=== PATIENT | female | born 1960 | race Caucasian/White ===

== ENCOUNTER 2021-03-19 10:01 | Outpatient (REF) | payer OTHER, SELFPAY ==
--- NOTE | ~2021-03-19 | MM_ITS ---
EXAMINATION: MM SCREENING DIGITAL BREAST TOMOSYNTHESIS, BILATERAL CLINICAL INFORMATION: Screening. Asymptomatic. The lifetime risk of breast cancer based on the Tyrer-Cuzick Model is 5.4%. COMPARISON: Mammography: June 20, 2018 and studies dating back to April 28, 2011 TECHNIQUE: Digital breast tomosynthesis is performed in both the craniocaudal and mediolateral oblique views along with computer-aided detection (CAD). Synthesized 2D images are generated from the tomosynthesis. FINDINGS: There are scattered areas of fibroglandular density (ACR BI-RADS breast composition Category b). There are no significant masses, abnormal calcifications, or other abnormalities. MM/MM tomosynthesis screening BI IMPRESSION: There are no significant changes from prior study. ASSESSMENT: BI-RADS 1: Negative RECOMMENDATION: Routine annual mammography screening. This patient's information was entered into a reminder system with a target due date for their next mammogram.
== END 2021-03-19 10:02 | disposition home or self-care (01) ==
LOC: HO.MAMMO 10:01
PROVIDERS: PCP Internal Medicine; Visit Provider Internal Medicine
DX: Z12.31 Encounter for screening mammogram for malignant neoplasm of breast (principal)
CPT/HCPCS: 77063; 77067

== ENCOUNTER 2021-07-20 16:35 | Outpatient (REF) | payer OTHER, SELFPAY ==
--- NOTE | ~2021-07-20 | XR_ITS ---
EXAMINATION: XR KNEE, RIGHT CLINICAL INFORMATION: Sprain COMPARISON: None TECHNIQUE: Four views of the right knee. FINDINGS: No significant joint effusion. Bones are normal anatomic alignment with no acute fracture or dislocation seen. No bony destructive lesions or periosteal reaction. XR/XR knee RT 4V IMPRESSION: No acute bony abnormality.
== END 2021-07-20 16:36 | disposition home or self-care (01) ==
LOC: HO.HMGCX 16:35
PROVIDERS: PCP Internal Medicine; Visit Provider Internal Medicine
DX: S83.91XA Sprain of unspecified site of right knee, initial encounter (principal)
CPT/HCPCS: 73564

== ENCOUNTER 2022-05-12 14:43 | Outpatient (REF) | payer OTHER, SELFPAY ==
--- NOTE | ~2022-05-12 | MM_ITS ---
EXAMINATION: MM SCREENING DIGITAL BREAST TOMOSYNTHESIS, BILATERAL CLINICAL INFORMATION: Screening. Asymptomatic. The lifetime risk of breast cancer based on the Tyrer-Cuzick Model is 6%. COMPARISON: Mammography: March 19, 2021 and studies dating back to May 26, 2015 TECHNIQUE: Digital breast tomosynthesis is performed in both the craniocaudal and mediolateral oblique views along with computer-aided detection (CAD). Synthesized 2D images are generated from the tomosynthesis. FINDINGS: There are scattered areas of fibroglandular density (ACR BI-RADS breast composition Category b). There are no significant masses, abnormal calcifications, or other abnormalities. MM/MM tomosynthesis screening BI IMPRESSION: No significant changes from prior exam. ASSESSMENT: BI-RADS 1: Negative RECOMMENDATION: Routine annual mammography screening. This patient's information was entered into a reminder system with a target due date for their next mammogram.
== END 2022-05-12 14:44 | disposition home or self-care (01) ==
LOC: HO.MAMMO 14:43
PROVIDERS: PCP Internal Medicine; Visit Provider Internal Medicine
DX: Z12.31 Encounter for screening mammogram for malignant neoplasm of breast (principal)
CPT/HCPCS: 77063; 77067

== ENCOUNTER 2023-05-19 14:55 | Outpatient (REF) | payer OTHER, SELFPAY | END 2023-05-19 14:56 | disposition home or self-care (01) | LOC: HO.MAMMO 14:55 | PROVIDERS: PCP Internal Medicine; Visit Provider Internal Medicine | DX: Z12.31 Encounter for screening mammogram for malignant neoplasm of breast (principal) | CPT/HCPCS: 77063; 77067 ==

== ENCOUNTER → 2023-05-19 15:00 | Outpatient (BNV) | payer OTHER, SELFPAY | PROVIDERS: PCP Internal Medicine; Visit Provider Radiology Diagnostic Radiology | DX: Z12.31 Encounter for screening mammogram for malignant neoplasm of breast (principal) | CPT/HCPCS: 77063; 77067 ==

== ENCOUNTER 2023-09-13 10:26 | Outpatient (AMB) | payer OTHER, SELFPAY ==
[2023-09-13 10:35] VITALS: BP 150/82; PULSE 67; O2SAT 98; BMI 22.1
--- NOTE | 2023-09-13 10:35 | MHC.PC.OV ---
Vital Signs 09/13/23 10:35 Height 5 ft 3 in Weight 125 lb BMI 22.1 BP 150/82 H Blood Pressure Location Lt brachial Position Sitting Pulse 67 Pulse Source Pulse Oximeter Pulse Oximetry (%) 98 Oxygen Delivery Method Room Air Intake Visit Reasons: Re-establish care Intake Note: Pt is here today for PE.Pt has not been seen since 2019. Allergies No Known Allergies Allergy (Verified 09/13/23 10:51) Medication List - Last Reconciled 09/13/23 by Kendy Knott MD No Known Home Meds Tobacco use date assessed: 09/13/23 Dental Screening Dental Screen Date: 09/13/23 Did you have a dental visit in the last 12 months?: Yes Did you have a dental problem in the last 6 months where you did not have access to dental care?: No Was dental information given to patient?: Patient has dentist HPI Re-establish care HPI Details Patient presents for a follow-up visit. She was found to have elevated blood pressure on a few occasions. Patient denies chest pain shortness of breath headaches change in vision. [facility] Surgical History No pertinent past surgical history Family History Father No problems noted. Mother COPD (chronic obstructive pulmonary disease) Mental health disorder Son Mental health disorder Social History Housing: House Patient Tobacco Use Status: Never used Tobacco e-Cigarette/Vaping Use: Never Used service: No Current occupational status: employed Cognitive needs: No Hearing needs: No Vision needs: Yes Questionnaire AUDIT C Alcohol Use Questionnaire (AUDIT-C) 1. How often do you have a drink containing alcohol?: 2-3 times a week 2. How many drinks containing alcohol do you have on a typical day when you are drinking?: 1 or 2 3. How often do you have six or more drinks on one occasion?: Never Total Score: 3 Review of Systems Const All systems reviewed & are unremarkable except as noted in HPI and below ENT Reports no additional complaints Card Reports no additional complaints Resp Reports no additional complaints GI Reports no additional complaints Reports no additional complaints Physical exam (Primary Care) Vital Signs: Last Vital Signs Pulse 67 09/13/23 10:35 BP 150/82 H 09/13/23 10:35 Pulse Ox 98 09/13/23 10:35 Oxygen Delivery Method Room Air 09/13/23 10:35 BMI result Body Mass Index 22.1 Tobacco/Smoking Status: Tobacco use Status Tobacco use date assessed 09/13/23 09/13/23 10:59 Patient Tobacco Use Status Never used Tobacco 09/13/23 10:59 e-Cigarette/Vaping Use Never Used 09/13/23 10:59 Const General: no acute distress HENOK General nose exam: Normal external nose present Mouth: Normal oral and palatal mucosa present Eyes General: appearance normal, both eyes and all related structures Neck Neck: Yes no lymphadenopathy and Yes supple Resp Effort & Inspection: normal respiratory effort Auscultation: clear to auscultation bilaterally Cardio Rhythm: regular rhythm Heart sounds: S1 normal heart sound present and S2 normal heart sound present GI Inspection: Yes normal to inspection Palpation (GI): Soft to palpation Percussion: Yes normal to percussion Auscultation: normal bowel sounds Assessment and Plan Assessment & Plan (1) Annual physical exam: Code(s): Z00.00 - Encounter for general adult medical examination without abnormal findings Plan: Well-balanced diet regular physical activity and down on alcohol intake discussed with the patient. She has up-to-date with the mammogram. Patient will be referred to GI for colonoscopy and will have a Pap smear during her next visit. (2) HTN (hypertension): Code(s): I10 - Essential (primary) hypertension Plan: Low-sodium diet regular exercise discussed with the patient's start valsartan 40 mg daily follow-up in 1 month Orders: Orders Comprehensive [place]. Panel Fast 1 Week I10 - Essential (primary) hypertension, Z00.00 - Encounter for general adult medical examination without abnormal findings TSH reflex Free T4 1 Week I10 - Essential (primary) hypertension, Z00.00 - Encounter for general adult medical examination without abnormal findings UA w Microscopic 1 Week I10 - Essential (primary) hypertension, Z00.00 - Encounter for general adult medical examination without abnormal findings Complete Blood Count Auto Diff 1 Week I10 - Essential (primary) hypertension, Z00.00 - Encounter for general adult medical examination without abnormal findings Lipid Panel 1 Week I10 - Essential (primary) hypertension, Z00.00 - Encounter for general adult medical examination without abnormal findings Vitamin D 25-OH Total 1 Week I10 - Essential (primary) hypertension, Z00.00 - Encounter for general adult medical examination without abnormal findings Medications: New valsartan 40 mg PO DAILY 90 tabs 0RF Coding Level of Care Code Est Pt Level 3 (59467) Diagnoses Annual physical exam Z00.00 HTN (hypertension) I10
== END 2023-09-13 11:34 | disposition home or self-care (01) ==
PROVIDERS: PCP Internal Medicine; Visit Provider Internal Medicine
DX: Z00.00 Encounter for general adult medical examination without abnormal findings (principal); I10 Essential (primary) hypertension
CPT/HCPCS: 99213; 99396

== ENCOUNTER 2023-11-16 08:53 | Outpatient (REF) | payer OTHER, SELFPAY ==
[2023-11-16 10:01] LABS: MANUAL DIFF FLAG NO
[2023-11-16 10:14] LABS: Basophils Percent Auto 0.8 % (0-2); Eosinophils Absolute Auto 0.3 X10*3/uL (0.0-0.4); Eosinophils Percent Auto 8.7 % (0-4); Hematocrit 35.8 % (37.0-47.0); Hemoglobin 12.2 g/dl (12.0-16.0); Imm Gran Abs Auto 0.02 X10*3/uL (0.00-0.03); Imm Gran Pct Auto 0.6 % (0.0-0.4); Lymphocytes Absolute Auto 1.1 X10*3/uL (1.2-4.9); Lymphocytes Percent Auto 29.6 % (20-40); Mean Corpuscular HGB Conc 34.1 g/dl (31.0-35.0); Mean Corpuscular Hemoglobin 33.8 pg (27.0-33.0); Mean Corpuscular Volume 99.2 fL (80.0-98.0); Mean Platelet Volume 8.6 fL (9.4-12.3); Monocytes Absolute Auto 0.4 X10*3/uL (0.1-1.2); Monocytes Percent Auto 10.6 % (2-11); Neutrophils Absolute Auto 1.8 x10*3/uL (2.0-8.3); Neutrophils Percent Auto 49.7 % (45-73); Platelet Count 288 X10*3/uL (160-400); Red Blood Count 3.61 X10*6/uL (4.20-5.50); Red Cell Distribution Width 11.6 % (11.0-16.0); White Blood Count 3.6 X10*3/uL (4.8-10.8)
[2023-11-16 10:36] LABS: Appearance Urine Clear; Color Urine Yellow; Glucose Urine UA Negative (Negative); Leukocyte Esterase Urine Trace (Negative); Nitrite Urine Negative (Negative); PH 5.5 (5.0-9.0); Specific Gravity - Urine 1.015 (1.005-1.025); UMIC TRIGGER UA YES; Urine Blood Negative (Negative); Urine Ketones Negative (Negative); Urine Protein Negative (Neg-Trace)
[2023-11-16 10:40] LABS: Bacteria Urine None Seen (None Seen); Hyaline Casts Urine 0-2 /LPF (0-2); RBC Urine 0-2 /HPF (0-2); Squamous Epithelial Cell Urine 0-2 /HPF (0-2); WBC Urine 0-5 /HPF (0-5)
[2023-11-16 10:41] LABS: Alanine Aminotransferase 78 U/L (0-31); Albumin Level 4.5 g/dL (3.5-5.0); Alkaline Phosphatase 50 U/L (39-117); Anion Gap 12 (12-20); Aspartate Amino Transferase 66 U/L (5-31); Bilirubin Total 0.6 mg/dL (0.0-1.0); Blood Urea Nitrogen 12 mg/dL (9-16); Calcium 9.6 mg/dL (8.4-10.2); Carbon Dioxide 27 mmol/L (22-29); Chloride 106 mmol/L (96-108); Cholesterol 247 mg/dL (<200); Estimated Glomerular Filt Rate > 60; Glucose Fasting 87 mg/dL (60-99); HDL Cholesterol 116 mg/dL (>40); LDL Cholesterol Calculated 115 mg/dL (<100); Potassium 4.3 mmol/L (3.3-5.1); Sodium 141 mmol/L (135-145); TSH reflex Free T4 0.99 uIU/mL (0.32-4.0); Total Protein 7.3 g/dL (6.5-8.0); Triglycerides 80 mg/dL (<150); Vitamin D 25-OH Total 19.5 ng/mL (>30)
== END 2023-11-16 08:54 | disposition home or self-care (01) ==
LOC: HO.HMGCLDS 08:53
PROVIDERS: PCP Internal Medicine; Visit Provider Internal Medicine
DX: Z00.00 Encounter for general adult medical examination without abnormal findings (principal); I10 Essential (primary) hypertension
CPT/HCPCS: 36415; 80053; 80061; 81001; 82306; 84443; 85025

== ENCOUNTER 2023-11-17 10:43 | Outpatient (AMB) | payer OTHER, SELFPAY ==
--- NOTE | 2023-11-17 10:52 | MHC.PC.OV ---
Vital Signs 11/17/23 10:53 Height 5 ft 3 in Weight 125 lb BMI 22.1 BP 138/80 Blood Pressure Location Lt brachial Position Sitting Pulse 79 Pulse Source Pulse Oximeter Pulse Oximetry (%) 100 Oxygen Delivery Method Room Air Intake Visit Reasons: Follow up Intake Note: Pt is here today for a follow up visit on BP. Allergies No Known Allergies Allergy (Verified 11/17/23 10:56) Medication List - Last Reconciled 11/17/23 by Kendy Knott MD valsartan 40 mg PO DAILY Tobacco use date assessed: 11/17/23 Dental Screening Dental Screen Date: 09/13/23 HPI Follow up HPI Details PATIENT PRESENTS FOR THE FOLLOW-UP ON HYPERTENSION CONTROLLED ON VALSARTAN. Patient reports medication being very expensive and would like to change to a cheaper one. Patient reports intermittent lightheadedness in the morning but otherwise tolerating medication well. She continues to drink daily 2 beers a day and occasionally with an extra drink. Patient denies alcohol dependency. [facility] Surgical History No pertinent past surgical history Family History Father No problems noted. Mother COPD (chronic obstructive pulmonary disease) Mental health disorder Son Mental health disorder Social History Housing: House Patient Tobacco Use Status: Never used Tobacco e-Cigarette/Vaping Use: Never Used service: No Current occupational status: employed Cognitive needs: No Hearing needs: No Vision needs: Yes Questionnaire PHQ-9 Over the last 2 weeks, how often have you been bothered by any of the following problems? 1. Little interest or pleasure in doing things: not at all 2. Feeling down, depressed, or hopeless: not at all 3. Trouble falling or staying asleep, or sleeping too much: not at all 4. Feeling tired or having little energy: not at all 5. Poor appetite or overeating: not at all 6. Feeling bad about yourself - or that you are a failure or have let yourself or your family down: not at all 7. Trouble concentrating on things, such as reading the newspaper or watching television: not at all 8. Moving or speaking so slowly that other people could have noticed. Or the opposite - being so fidgety or restless that you have been moving around a lot more than usual: not at all 9. Thoughts that you would be better off or of hurting yourself in some way: not at all Total score: 0 Depression Screening Interpretation: Negative Depression Screening Done: Yes 97173 - PHQ-9 Billing: Yes Source: Developed by Drs. Dony Ruiz, Leonora Villagran, Curtis Nova and colleagues, with an educational landon from [employer]. Thrive Questionnaire Date Thrive assessed: 11/16/23 I am a: Patient What is your living situation today?: I have a steady place to live Within the past 12 months, did the food you bought not last and you didn't have the money to get more?: Never true Within the past 12 months, did you worry whether your food would run out before you got money to buy more?: Often true Do you have trouble paying for medicines?: No Do you have trouble getting transportation to medical appointments?: No Do you have trouble paying your heating and electricity bill?: No Do you have trouble taking care of your child, family member or friend?: No Do you have trouble with day-to-day activities such as bathing, preparing meals, shopping, managing finances, etc.?: No Are you currently unemployed and looking for a job?: No Are you interested in more education?: No Please select the resources that you would like help with: None Currently or been in a relationship where the following occur: No concerns reported THRIVE Score: 1 AUDIT C Alcohol Use Questionnaire (AUDIT-C) 1. How often do you have a drink containing alcohol?: 4 or more times a week 2. How many drinks containing alcohol do you have on a typical day when you are drinking?: 3 or 4 3. How often do you have six or more drinks on one occasion?: Less than monthly Total Score: 6 RADHA-7 AMB Questionnaire RADHA-7 Feeling nervous, anxious, or on edge: 1 = Several days Not being able to stop or control worryin = Several days Worrying too much about different things: 1 = Several days Trouble relaxin = Not at all Being so restless that it is hard to sit still: 0 = Not at all Becoming easily annoyed or irritable: 0 = Not at all Feeling afraid as if something awful might happen: 0 = Not at all Total RADHA-7 score (0-4 normal; 5-9 mild; 10-14 moderate; 15-21 severe): 3 Source: Developed by Drs. Dony Ruiz, Leonora Villagran, Cutris Nova and colleagues, with an educational landon from [employer]. Review of Systems Const All systems reviewed & are unremarkable except as noted in HPI and below Card Reports no additional complaints Resp Reports no additional complaints GI Reports no additional complaints Physical exam (Primary Care) Vital Signs: Last Vital Signs Pulse 79 11/17/23 10:53 BP 138/80 11/17/23 10:53 Pulse Ox 100 11/17/23 10:53 Oxygen Delivery Method Room Air 11/17/23 10:53 BMI result Body Mass Index 22.1 Tobacco/Smoking Status: Tobacco use Status Tobacco use date assessed 11/17/23 11/17/23 11:00 Patient Tobacco Use Status Never used Tobacco 11/17/23 11:00 e-Cigarette/Vaping Use Never Used 11/17/23 10:53 PHQ-9: PHQ-9 Score PHQ-9: Total score 0 11/17/23 10:53 Depression Screening Interpretation: Negative Thrive Assessment: Date of Thrive Assessment Date Thrive assessed 11/16/23 11/17/23 10:53 Currently or been in a relationship where the following occur: No concerns reported Const General: no acute distress HENMT Mouth: Normal oral and palatal mucosa present Resp Effort & Inspection: normal respiratory effort Auscultation: clear to auscultation bilaterally Cardio Rhythm: regular rhythm Heart sounds: S1 normal heart sound present and S2 normal heart sound present GI Inspection: Yes normal to inspection Palpation (GI): Soft to palpation Percussion: Yes normal to percussion Auscultation: normal bowel sounds Assessment and Plan Assessment & Plan (1) HTN (hypertension): Code(s): I10 - Essential (primary) hypertension Plan: Continue valsartan and change to losartan after she finish her supply of valsartan (2) Vitamin D deficiency: Code(s): E55.9 - Vitamin D deficiency, unspecified Plan: Start 2000 units of vitamin-D and check the level in 1 month (3) Macrocytic anemia: Code(s): D53.9 - Nutritional anemia, unspecified Plan: Take vitamin B12 level (4) Elevated LFTs: Code(s): R79.89 - Other specified abnormal findings of blood chemistry Plan: Cutting down on alcohol and [id number] NSAIDs discussed with the patient. Repeat liver function tests and hepatitis screen in 1 month Orders: Orders Vitamin B12 and Folate 1 Month E55.9 - Vitamin D deficiency, unspecified, I10 - Essential (primary) hypertension Vitamin D 25-OH Total 1 Month E55.9 - Vitamin D deficiency, unspecified, I10 - Essential (primary) hypertension Liver Kidney Microsomal Ab 1 Month D53.9 - Nutritional anemia, unspecified, E55.9 - Vitamin D deficiency, unspecified Hepatitis B,C Profile 1 Month D53.9 - Nutritional anemia, unspecified, E55.9 - Vitamin D deficiency, unspecified Vitamin B1 1 Month E55.9 - Vitamin D deficiency, unspecified, I10 - Essential (primary) hypertension Liver Panel 1 Month D53.9 - Nutritional anemia, unspecified, E55.9 - Vitamin D deficiency, unspecified Ceruloplasmin 1 Month D53.9 - Nutritional anemia, unspecified, E55.9 - Vitamin D deficiency, unspecified Coding Level of Care Code Est Pt Level 4 (81908) Diagnoses HTN (hypertension) I10 Vitamin D deficiency E55.9 Macrocytic anemia D53.9 Elevated LFTs R79.89
[2023-11-17 10:53] VITALS: BP 138/80; PULSE 79; O2SAT 100; BMI 22.1
== END 2023-11-17 11:52 | disposition home or self-care (01) ==
PROVIDERS: PCP Internal Medicine; Visit Provider Internal Medicine
DX: I10 Essential (primary) hypertension (principal); E55.9 Vitamin D deficiency, unspecified; D53.9 Nutritional anemia, unspecified; R79.89 Other specified abnormal findings of blood chemistry
CPT/HCPCS: 99214

== ENCOUNTER 2024-01-31 10:43 | Outpatient (AMB) | payer OTHER, SELFPAY ==
--- NOTE | 2024-01-31 10:43 | A.OFFPC_ITS ---
Vital Signs 01/31/24 10:44 Height 5 ft 3 in Weight 125 lb BMI 22.1 BP 134/78 Blood Pressure Location Lt brachial Position Sitting Pulse 82 Pulse Source Pulse Oximeter Pulse Oximetry (%) 99 Oxygen Delivery Method Room Air Intake Visit Reasons: 2 months f/up Intake Note: Pt is here today for 2 months follow up visit on BP. Allergies No Known Allergies Allergy (Verified 01/31/24 11:06) Medication List - Last Reconciled 01/31/24 by Kendy Knott MD valsartan 40 mg PO DAILY Tobacco use date assessed: 01/31/24 Dental Screening Dental Screen Date: 09/13/23 HPI 2 months f/up HPI Details Pt presents for f/u HTN, stable on Valsartan. PFSH Surgical History No pertinent past surgical history Family History Father No problems noted. Mother COPD (chronic obstructive pulmonary disease) Mental health disorder Son Mental health disorder Social History Housing: House Patient Tobacco Use Status: Never used Tobacco e-Cigarette/Vaping Use: Never Used service: No Current occupational status: employed Cognitive needs: No Hearing needs: No Vision needs: Yes Questionnaire Thrive Questionnaire Date Thrive assessed: 11/16/23 I am a: Patient What is your living situation today?: I have a steady place to live Within the past 12 months, did the food you bought not last and you didn't have the money to get more?: Never true Within the past 12 months, did you worry whether your food would run out before you got money to buy more?: Often true Do you have trouble paying for medicines?: No Do you have trouble getting transportation to medical appointments?: No Do you have trouble paying your heating and electricity bill?: No Do you have trouble taking care of your child, family member or friend?: No Do you have trouble with day-to-day activities such as bathing, preparing meals, shopping, managing finances, etc.?: No Are you currently unemployed and looking for a job?: No Are you interested in more education?: No Please select the resources that you would like help with: None Currently or been in a relationship where the following occur: No concerns reported THRIVE Score: 1 Review of Systems Const All systems reviewed & are unremarkable except as noted in HPI and below ENT Reports no additional complaints Card Reports no additional complaints Resp Reports no additional complaints GI Reports no additional complaints Reports no additional complaints Physical exam (Primary Care) Vital Signs: Last Vital Signs Pulse 82 01/31/24 10:44 BP 134/78 01/31/24 10:44 Pulse Ox 99 01/31/24 10:44 Oxygen Delivery Method Room Air 01/31/24 10:44 BMI result Body Mass Index 22.1 Tobacco/Smoking Status: Tobacco use Status Tobacco use date assessed 01/31/24 01/31/24 11:08 Patient Tobacco Use Status Never used Tobacco 01/31/24 10:43 e-Cigarette/Vaping Use Never Used 01/31/24 10:43 Thrive Assessment: Date of Thrive Assessment Date Thrive assessed 11/16/23 01/31/24 10:43 Currently or been in a relationship where the following occur: No concerns reported Const General: no acute distress HENMT Head: Yes normal to inspection Throat: Yes posterior oropharynx normal Eyes General: appearance normal, both eyes and all related structures Neck Neck: Yes no lymphadenopathy and Yes supple Resp Effort & Inspection: normal respiratory effort Auscultation: clear to auscultation bilaterally Cardio Rhythm: regular rhythm Heart sounds: S1 normal heart sound present and S2 normal heart sound present GI Inspection: Yes normal to inspection Coding Level of Care Code Est Pt Level 4 (81113) Diagnoses HTN (hypertension) I10 Vitamin D deficiency E55.9 Anemia D64.9 ETOH abuse F10.10 Assessment & Plan Assessment & Plan (1) HTN (hypertension): Code(s): I10 - Essential (primary) hypertension Category: Medical Plan: Continue valsartan. Patient will check formula letter with her insurance for cheaper ARB (2) Vitamin D deficiency: Code(s): E55.9 - Vitamin D deficiency, unspecified Category: Medical Plan: Continue vitamin D (3) Anemia: Code(s): D64.9 - Anemia, unspecified Category: Medical Plan: Check CBC and iron count (4) ETOH abuse: Code(s): F10.10 - Alcohol abuse, uncomplicated Category: Social Hx Plan: CUTTING DOWN ON ALCOHOL DISCUSSED WITH THE PATIENT WILL MONITOR LFTS Orders: Orders Comprehensive Met. Panel 1 Month D64.9 - Anemia, unspecified, E55.9 - Vitamin D deficiency, unspecified, I10 - Essential (primary) hypertension, R79.89 - Other specified abnormal findings of blood chemistry Comprehensive [place]. Panel Fast 9 Months D53.9 - Nutritional anemia, unspecified, D64.9 - Anemia, unspecified, E55.9 - Vitamin D deficiency, unspecified, I10 - Essential (primary) hypertension, R79.89 - Other specified abnormal findings of blood chemistry Lipid Panel 9 Months D53.9 - Nutritional anemia, unspecified, D64.9 - Anemia, unspecified, E55.9 - Vitamin D deficiency, unspecified, I10 - Essential (primary) hypertension, R79.89 - Other specified abnormal findings of blood chemistry IRON PROFILE 9 Months D53.9 - Nutritional anemia, unspecified, D64.9 - Anemia, unspecified, E55.9 - Vitamin D deficiency, unspecified, I10 - Essential (primary) hypertension, R79.89 - Other specified abnormal findings of blood chemistry Vitamin D 25-OH Total 9 Months D53.9 - Nutritional anemia, unspecified, D64.9 - Anemia, unspecified, E55.9 - Vitamin D deficiency, unspecified, I10 - Essential (primary) hypertension, R79.89 - Other specified abnormal findings of blood chemistry Complete Blood Count Auto Diff 1 Month D64.9 - Anemia, unspecified, E55.9 - Vitamin D deficiency, unspecified, I10 - Essential (primary) hypertension IRON PROFILE 1 Month D64.9 - Anemia, unspecified, E55.9 - Vitamin D deficiency, unspecified, I10 - Essential (primary) hypertension Complete Blood Count Auto Diff 9 Months D53.9 - Nutritional anemia, unspecified, D64.9 - Anemia, unspecified, E55.9 - Vitamin D deficiency, unspecified, I10 - Essential (primary) hypertension, R79.89 - Other specified abnormal findings of blood chemistry TSH reflex Free T4 9 Months D53.9 - Nutritional anemia, unspecified, D64.9 - Anemia, unspecified, E55.9 - Vitamin D deficiency, unspecified, I10 - Essential (primary) hypertension, R79.89 - Other specified abnormal findings of blood chemistry Vitamin B12 and Folate 9 Months D53.9 - Nutritional anemia, unspecified, D64.9 - Anemia, unspecified, E55.9 - Vitamin D deficiency, unspecified, I10 - Essential (primary) hypertension, R79.89 - Other specified abnormal findings of blood chemistry Medications: New folic acid 0.4 mg PO DAILY 90 tabs 3RF Refilled valsartan 40 mg PO DAILY 90 tabs 3RF
[2024-01-31 10:44] VITALS: BP 134/78; PULSE 82; O2SAT 99; BMI 22.1
== END 2024-01-31 14:34 | disposition home or self-care (01) ==
PROVIDERS: PCP Internal Medicine; Visit Provider Internal Medicine
DX: I10 Essential (primary) hypertension (principal); E55.9 Vitamin D deficiency, unspecified; D64.9 Anemia, unspecified; F10.10 Alcohol abuse, uncomplicated

== ENCOUNTER → 2024-01-31 10:43 | Outpatient (BNVA) | payer OTHER, SELFPAY | PROVIDERS: PCP Internal Medicine; Visit Provider Internal Medicine | DX: I10 Essential (primary) hypertension (principal); E55.9 Vitamin D deficiency, unspecified; D64.9 Anemia, unspecified; F10.10 Alcohol abuse, uncomplicated | CPT/HCPCS: 99212 ==

== ENCOUNTER 2024-09-10 11:57 | Emergency (ER) | payer OTHER, SELFPAY ==
--- NOTE | ~2024-09-10 | XR_ITS ---
EXAMINATION: XR CHEST CLINICAL INFORMATION: chest pain COMPARISON: None available. TECHNIQUE: 2 views of the chest were obtained. FINDINGS: No significant abnormality is noted involving the heart, lungs, mediastinum, bony thorax or soft tissues. XR/XR chest 2V IMPRESSION: Unremarkable chest examination. Electronically signed by: Rich Diane MD 09/10/2024 01:07 PM EDT RP
--- NOTE | 2024-09-10 11:59 | ECG_ITS ---
Test Reason : TACHY Blood Pressure : */* mmHG Vent. Rate : 77 BPM Atrial Rate : 77 BPM P-R Int : 146 ms QRS Dur : 86 ms QT Int : 386 ms P-R-T Axes : 71 48 49 degrees QTcB Int : 436 ms Normal sinus rhythm Normal ECG No previous ECGs available Referred By: Latha Gonzalez Electronically Signed By: HIMA BASHIR MD
--- NOTE | 2024-09-10 12:39 | ED_ITS ---
HPI - General Adult General Chief complaint: Chest Pain Stated complaint: high heart rate Time Seen by Provider: 09/10/24 14:58 Source: patient Mode of arrival: ambulatory Limitations: no limitations History of Present Illness ED Provider: GRAY GILES narrative: 64 yo female with PMH of HTN, HLD, anemia here with c/o intermittent central sharp chest pains x 2 weeks not related to exertion. No recent travel/procedures. No URI symptoms. Pain not worse with exertion. No leg swelling. In this time she has noted her BPs are high despite compliance with her 40mg valsartan. She has been under stress due to her son. She MD complaint: HTN, chest pains Onset (ago): week(s) (2) Location: chest Radiation: non-radiation Severity: moderate Quality: stabbing Pain Consistency: intermittent Relieving factors: none Exacerbating factors: none Associated symptoms: denies other symptoms Treatments prior to arrival: none Related Data Previous Rx's ?Medication ?Instructions ?Recorded folic acid 400 mcg tablet 0.4 mg PO DAILY #90 tabs valsartan 40 mg tablet 40 mg PO DAILY #90 tabs 01/12 12/05 valsartan 40 mg tablet 20 mg (1/2 x 40 mg) PO DAILY #30 09/10/24 tabs Allergies Allergy/AdvReac Type Severity Reaction Status Date / Time No Known Allergies Allergy Verified 09/10/24 12:41 Review of Systems 2 Review of Systems: Constitutional : No Weight loss, No Fever, No Chills ENT/Mouth : No sore throat, No Rhinorrhea Eyes: No Eye Pain, No Swelling Cardiovascular : pos Chest Pain, no SOB, no Dyspnea on Exertion, No Orthopnea, No Edema, No Palpitations Respiratory : No Cough, No Sputum Gastrointestinal : pos Nausea, No Vomiting, No Diarrhea, No abdominal Pain, No Hematochezia, No Melena Genitourinary : No Dysuria, No Urinary Frequency Musculoskeletal : No joint pain, No Myalgias, No Joint Swelling Skin : No Skin Lesions, No rash Neuro : No Weakness, No Numbness, No Dizziness, No Headache Psych : No Anxiety/Panic, No Depression Heme/Lymph: No Bruising, No Lymphadenopathy Endocrine : No Polyuria, No Polydipsia All other systems reviewed and are negative PMFSH Past Medical History Attestation statement: The following information was validated with the patient. Source: old records reviewed Medical History Anemia HTN (hypertension) Surgical History No pertinent past surgical history Family History Family History Father No problems noted. Mother COPD (chronic obstructive pulmonary disease) Mental health disorder Son Mental health disorder Social History Social History Housing: House Patient Tobacco Use Status: Never used Tobacco e-Cigarette/Vaping Use: Never Used Advance Directives: No Advance Directives Information Provided: Yes Do you have a plan to hurt others: No Plan service: No Current occupational status: employed Cognitive needs: No Hearing needs: No Vision needs: Yes Physical Exam ED Vital Signs: Vital Signs - 24 hr 09/10/24 12:40 09/10/24 14:38 Temperature 98.0 F Pulse Rate 69 65 Respiratory Rate 16 16 Blood Pressure 167/91 H 165/82 H Pulse Oximetry 98 96 Oxygen Delivery Method Room Air Room Air BMI result Body Mass Index 21.3 Appearance: Alert. Oriented X3. No acute distress. Eyes: Pupils equal, round and reactive to light. ENT: Pharynx normal. Neck: Normal inspection. Neck supple. CVS: Normal heart rate and rhythm. Pulses normal. Respiratory: No respiratory distress. Breath sounds normal. Abdomen: Soft and nontender. Skin: Skin warm and dry. Normal skin color. Normal skin turgor. Extremities: No lower extremity edema. No calf ttp Neuro: Oriented X 3. No motor deficit. No sensory deficit. CN2-12 intact Course Course Course Narrative: RME performed by Latha Gonzalez PA-C. Patient is a 64 year old assigned female at presenting to the emergency department with chest pain and concerns about her heart rate. Patient states that over the last few weeks she'd have significant chest pain. Patient recently drove back from [place]. Detailed physical exam and review of systems are deferred to the cut out and marking machine operator. EKG, labs, and imaging ordered. Patient placed back in the waiting room pending room availability and results. Procedures Procedure Narrative Procedure Narrative: EMERGENCY ULTRASOUND INTERPRETATION-Limited Echocardiography? The study reveals:? Impression: NORMAL LV FUNCTION, NO RV DYSFUNCTION, NO PERICARDIAL EFFUSION Emergent Cardiac for Indication:?chest pains Views Used: PLAX, PSSA, A4, SX, IVC Pericardial Effusion/Tamponade Findings: NONE RV Dilation (> LV diam in 4ch apical):? NONE Global LV Fxn: NORMAL IVC Dilation and Resp Variation: NORMAL Performed by: GRAY Date: 09/10/24 Time: 354pm CPT:45809; Reference Codes? [email or web address] Medical Decision Making Medical Decision Making MDM Narrative: 64 yo female with PMH of HTN, HLD no fam hx of CAD she is aware of - father is on coumadin but he is elderly she notes atypical sharp intermittent chest pain not brought on by exertion but also having elevated HTN despite taking her medications. At this time her heart score is 2, she has low prob VTE and her BP is improving. I am going to obtain EKG, CXR, trop x 1, bedside ECHO. If all normal will increase her valsartan dose. She has appt with PCP on 09/13. Differential Diagnosis Differential Diagnoses: The differential diagnosis associated with the presentation includes low prob acs, HTN, wells score PE 0, given two weeks and symmetric pulses doubt VTE effusion Admission/Observation Consideration of admission/observation: Escalation of care including admission/observation considered work up reassuring stable for DC Lab Data [facility] Lab Attestation statement: I reviewed the patient's lab results. 09/10/24 13:09 09/10/24 13:09 Labs: Lab Results 09/10/24 Range/Units 13:09 WBC 4.5 L (4.8-10.8) X10*3/uL RBC 3.99 L (4.20-5.50) X10*6/uL Hgb 13.7 (12.0-16.0) g/dl Hct 38.6 (37.0-47.0) % MCV 96.7 (80.0-98.0) fL MCH 34.3 H (27.0-33.0) pg MCHC 35.5 H (31.0-35.0) g/dl RDW 11.5 (11.0-16.0) % Plt Count 304 (160-400) X10*3/uL MPV 8.1 L (9.4-12.3) fL Immature Gran % (Auto) 0.4 (0.0-0.4) % Neut % (Auto) 66.8 (45-73) % Lymph % (Auto) 22.0 (20-40) % [place] % (Auto) 8.1 (2-11) % Eos % (Auto) 2.0 (0-4) % Baso % (Auto) 0.7 (0-2) % Lymph # (Auto) 1.0 L (1.2-4.9) X10*3/uL [place] # (Auto) 0.4 (0.1-1.2) X10*3/uL Eos # (Auto) 0.1 (0.0-0.4) X10*3/uL Baso # (Auto) 0.0 (0.0-0.2) X10*3/uL Abs Immat Gran (auto) 0.02 (0.00-0.03) X10*3/uL Absolute Neuts (auto) 3.0 (2.0-8.3) x10*3/uL Absolute Nucleated RBC 0.000 (0.0-0.012) X10*3/uL Nucleated RBC % (auto) 0.0 (0.0-0.2) /100WBC APTT 27.7 (26.0-36.8) SEC Sodium 140 (135-145) mmol/L Potassium 4.1 (3.3-5.1) mmol/L Chloride 102 (96-108) mmol/L Carbon Dioxide 27 (22-29) mmol/L Anion Gap 15 (12-20) BUN 14 (9-16) mg/dL Creatinine 0.59 (0.5-1.4) mg/dL Estim Creat Clear Calc 80.7 Estimated GFR > 60 Random Glucose 99 (60-115) mg/dL Calcium 10.0 (8.4-10.2) mg/dL Magnesium 2.0 (1.6-2.6) mg/dL Total Bilirubin 0.5 (0.0-1.0) mg/dL AST 53 H (5-31) U/L ALT 74 H (0-31) U/L Alkaline Phosphatase 56 (39-117) U/L Troponin I High Sens < 2.7 (<3.5-17.0) ng/L Total Protein 8.2 H (6.5-8.0) g/dL Albumin 5.2 H (3.5-5.0) g/dL TSH 0.73 (0.32-4.0) uIU/mL Independent Interpretation I performed an independent interpretation of an: EKG and Plain X-Ray (no pneumonia) Interpretation: Rate: 77 Rhythm: NSR Clawson: normal Normal P waves. Normal ASHUTOSH. Normal QRS complex. ST T wave : inverted t waves V1, no DANIEL qTC: 436 prior studies: no acute ischemia The study has been interpreted contemporaneously by me. . Radiology Impression Discussion of test interpretation with radiology: I have reviewed the radiologist's reading. Discharge Plan Discharge Clinical Impression: Atypical chest pain HTN (hypertension) Qualifiers: Hypertension type: unspecified Qualified Code(s): I10 - Essential (primary) hypertension Patient Disposition: Home, Self-Care Instructions: Chest Pain (ED), Hypertension (ED) Additional Instructions: your heart test and EKG were reassuring today, you had normal chest xray your bedside ultrasound showed no fluid around the heart rest for the next few days - monitor your blood pressure daily at the same time return for worsening pain, headaches, confusion, headaches or any other concerns follow up with your doctor as planned on 09/13 you will need an outpatient stress test Prescriptions: New valsartan 40 mg tablet 20 mg PO DAILY Qty: 30 1RF Rx Instructions: in addition to your 40mg daily - total daily dose is 60mg No Action valsartan 40 mg tablet 40 mg PO DAILY Qty: 90 3RF folic acid 400 mcg tablet 0.4 mg PO DAILY Qty: 90 3RF Stand Alone Forms: Work/School Release Print Language: Sinhala
[2024-09-10 12:40] VITALS: BP 167/91; PULSE 69; RESP 16; TEMP 36.7; O2SAT 98; BMI 21.3
[2024-09-10 13:13] LABS: MANUAL DIFF FLAG NO
[2024-09-10 13:23] LABS: Basophils Percent Auto 0.7 % (0-2); Eosinophils Absolute Auto 0.1 X10*3/uL (0.0-0.4); Hematocrit 38.6 % (37.0-47.0); Hemoglobin 13.7 g/dl (12.0-16.0); Imm Gran Abs Auto 0.02 X10*3/uL (0.00-0.03); Imm Gran Pct Auto 0.4 % (0.0-0.4); Mean Corpuscular HGB Conc 35.5 g/dl (31.0-35.0); Mean Corpuscular Hemoglobin 34.3 pg (27.0-33.0); Mean Corpuscular Volume 96.7 fL (80.0-98.0); Mean Platelet Volume 8.1 fL (9.4-12.3); Monocytes Absolute Auto 0.4 X10*3/uL (0.1-1.2); Monocytes Percent Auto 8.1 % (2-11); Neutrophils Percent Auto 66.8 % (45-73); Platelet Count 304 X10*3/uL (160-400); Red Blood Count 3.99 X10*6/uL (4.20-5.50); Red Cell Distribution Width 11.5 % (11.0-16.0); White Blood Count 4.5 X10*3/uL (4.8-10.8)
[2024-09-10 13:24] LABS: Partial Thromboplastin Time 27.7 SEC (26.0-36.8)
[2024-09-10 13:40] LABS: Alanine Aminotransferase 74 U/L (0-31); Albumin Level 5.2 g/dL (3.5-5.0); Alkaline Phosphatase 56 U/L (39-117); Anion Gap 15 (12-20); Aspartate Amino Transferase 53 U/L (5-31); Bilirubin Total 0.5 mg/dL (0.0-1.0); Blood Urea Nitrogen 14 mg/dL (9-16); Carbon Dioxide 27 mmol/L (22-29); Chloride 102 mmol/L (96-108); Creatinine Clr Calc Pharmacy 80.7; Estimated Glomerular Filt Rate > 60; Glucose Random 99 mg/dL (60-115); Potassium 4.1 mmol/L (3.3-5.1); Sodium 140 mmol/L (135-145); Total Protein 8.2 g/dL (6.5-8.0)
[2024-09-10 13:44] LABS: Troponin-I High Sensitivity < 2.7 ng/L (<3.5-17.0)
--- OUTSIDE RECORDS SUMMARY | 2024-09-10 14:36 | XMS_ITS | Patient Health Record ---
Author Organization [facility] Address [address] [place] [address] Care Team Providers Care Respite Care Provider Name Role Phone Mariella Burrows Unavailable [phone] Reason For Referral No Information Problems Problem Type SNOMED Code ICD Code Onset Dates Problem Status W/U Status Risk Notes Problem Gynecological examination normal (309013242185887) Routine gynecological examination (V72.31) Active confirmed Major Problem Exercises teaching, guidance, and counseling ([id number]) Exercise counseling (V65.41) Active confirmed Diag Problem Screening for malignant neoplasm of colon (000037557) Special screening for malignant neoplasms, colon (V76.51) Active confirmed Major Plan Of Treatment Pending Test Test Name Order Date Ultrasound : Breast, left 05/30/2015 Insurance Providers Payer Name Payer Address Payer Phone Subscriber Number Group Number Insured Name Patient Relationship to Insured Coverage Start Date Coverage End Date [facility] [address] [place] [address] [id number] JOAQUIN MUNGUIA Self - patient is the insured Medical (General) History Surgical History Surgery Date(Month/Year) VAGINAL SLING SURGERY - INCONTINENCE
[2024-09-10 14:38] VITALS: BP 165/82; PULSE 65; RESP 16; O2SAT 96
[2024-09-10 15:39] LABS: TSH reflex Free T4 0.73 uIU/mL (0.32-4.0)
[2024-09-10 16:14] VITALS: BP 169/87; PULSE 64; RESP 16; TEMP 36.6; O2SAT 98
== END 2024-09-10 16:16 | disposition home or self-care (01) ==
PROVIDERS: Physician Assistant Medical; Emergency Provider Emergency Medicine; PCP Internal Medicine
DX: R07.89 Other chest pain (principal); I10 Essential (primary) hypertension; Z79.899 Other long term (current) drug therapy
CPT/HCPCS: 36415; 71046; 80053; 83735; 84443; 84484; 85025; 85730; 93005; 99283; 99284

== ENCOUNTER → 2024-09-10 11:59 | Outpatient (BNV) | payer OTHER, SELFPAY | PROVIDERS: Emergency Provider Emergency Medicine; PCP Internal Medicine; Visit Provider Internal Medicine Cardiovascular Disease | DX: R00.0 Tachycardia, unspecified (principal) | CPT/HCPCS: 93010 ==

== ENCOUNTER → 2024-09-10 12:42 | Outpatient (BNV) | payer OTHER, SELFPAY | PROVIDERS: PCP Internal Medicine; Visit Provider Radiology Diagnostic Radiology | DX: R07.9 Chest pain, unspecified (principal) | CPT/HCPCS: 71046 ==

== ENCOUNTER 2024-10-12 11:52 | Outpatient (REF) | payer OTHER, SELFPAY | END 2024-10-12 11:53 | disposition home or self-care (01) | LOC: HO.LNP 11:52 | PROVIDERS: PCP Internal Medicine; Visit Provider Internal Medicine | DX: Z00.00 Encounter for general adult medical examination without abnormal findings (principal); R79.89 Other specified abnormal findings of blood chemistry; I10 Essential (primary) hypertension; F10.10 Alcohol abuse, uncomplicated; Z79.899 Other long term (current) drug therapy; Z13.31 Encounter for screening for depression; Z13.39 Encounter for screening examination for other mental health and behavioral disorders; Z12.4 Encounter for screening for malignant neoplasm of cervix; Z11.51 Encounter for screening for human papillomavirus (HPV) | CPT/HCPCS: 87626; 88175; 96127; 99396 ==

== ENCOUNTER 2024-10-12 11:52 | Outpatient (AMB) | payer OTHER, SELFPAY ==
--- OUTSIDE RECORDS SUMMARY | 2024-10-12 11:55 | XMS_ITS | Patient Health Record ---
Author Organization [facility] Address [address] [place] [address] Care Team Providers Care Client Application Support Specialist Name Role Phone Mariella Burrows Unavailable [phone] Reason For Referral No Information Problems Problem Type SNOMED Code ICD Code Onset Dates Problem Status W/U Status Risk Notes Problem Gynecological examination normal (589136903906252) Routine gynecological examination (V72.31) Active confirmed Major Problem Exercise counseling (V65.41) Active confirmed Diag Problem Screening for malignant neoplasm of colon (684179339) Special screening for malignant neoplasms, colon (V76.51) Active confirmed Major Plan Of Treatment Pending Test Test Name Order Date Ultrasound : Breast, left 05/30/2015 Insurance Providers Payer Name Payer Address Payer Phone Subscriber Number Group Number Insured Name Patient Relationship to Insured Coverage Start Date Coverage End Date [facility] [address] [place] [address] [id number] JOAQUIN MUNGUIA Self - patient is the insured Medical (General) History Surgical History Surgery Date(Month/Year) VAGINAL SLING SURGERY - INCONTINENCE
[2024-10-12 12:07] VITALS: BP 122/78; PULSE 64; RESP 18; TEMP 36.8; O2SAT 94; BMI 21.4
--- NOTE | 2024-10-12 12:07 | A.OFFPC_ITS ---
Vital Signs 10/12/24 12:07 Height 5 ft 3 in Weight 121 lb BMI 21.4 BP 122/78 Blood Pressure Location Lt brachial Position Sitting Respiration 18 Pulse 64 Pulse Source Pulse Oximeter Temp 98.3 F Temp Source Oral Pulse Oximetry (%) 94 Oxygen Delivery Method Room Air Intake Visit Reasons: Annual PE Intake Note: Pt is here today for PE. Allergies No Known Allergies Allergy (Verified 10/12/24 12:19) Medication List - Last Reconciled 10/12/24 by Kendy Knott MD folic acid 0.4 mg PO DAILY valsartan 40 mg PO DAILY Tobacco use date assessed: 10/12/24 Dental Screening Dental Screen Date: 10/12/24 Did you have a dental visit in the last 12 months?: Yes Did you have a dental problem in the last 6 months where you did not have access to dental care?: No Was dental information given to patient?: Patient has dentist HPI Annual PE HPI Details Patient presents for physical. She went to the emergency room 2 months ago with a complaint of elevated blood pressure. Patient has been under lot of stress related to her son. She has been monitoring her blood pressure at home and reports readings between 120 to 135/80. She has stopped drinking grapefruit juice PFSH Medical History ETOH abuse Annual physical exam Elevated LFTs HTN (hypertension) Anemia Surgical History Hx of colonoscopy No pertinent past surgical history Family History Father No problems noted. Mother COPD (chronic obstructive pulmonary disease) Mental health disorder Son Mental health disorder Social History Housing: House Patient Tobacco Use Status: Never used Tobacco e-Cigarette/Vaping Use: Never Used service: No Current occupational status: employed Cognitive needs: No Hearing needs: No Vision needs: Yes Questionnaire PHQ-9 Over the last 2 weeks, how often have you been bothered by any of the following problems? 1. Little interest or pleasure in doing things: not at all 2. Feeling down, depressed, or hopeless: not at all 3. Trouble falling or staying asleep, or sleeping too much: not at all 4. Feeling tired or having little energy: not at all 5. Poor appetite or overeating: not at all 6. Feeling bad about yourself - or that you are a failure or have let yourself or your family down: not at all 7. Trouble concentrating on things, such as reading the newspaper or watching te levision: not at all 8. Moving or speaking so slowly that other people could have noticed. Or the opposite - being so fidgety or restless that you have been moving around a lot more than usual: not at all 9. Thoughts that you would be better off or of hurting yourself in some way: not at all Total score: 0 Depression Screening Interpretation: Negative Depression Screening Done: Yes 48402 - PHQ-9 Billing: Yes Source: Developed by Drs. Dony Ruiz, Leonora Villagran, Curtis Nova and colleagues, with an educational landon from [employer]. Thrive Questionnaire Date Thrive assessed: 10/12/24 I am a: Patient What is your living situation today?: I have a steady place to live Within the past 12 months, did the food you bought not last and you didn't have the money to get more?: Never true Within the past 12 months, did you worry whether your food would run out before you got money to buy more?: Never true Do you have trouble paying for medicines?: No Do you have trouble getting transportation to medical appointments?: No Do you have trouble paying your heating and electricity bill?: No Do you have trouble taking care of your child, family member or friend?: No Do you have trouble with day-to-day activities such as bathing, preparing meals, shopping, managing finances, etc.?: No Are you currently unemployed and looking for a job?: No Are you interested in more education?: No Please select the resources that you would like help with: None THRIVE Score: 0 AUDIT C Alcohol Use Questionnaire (AUDIT-C) 1. How often do you have a drink containing alcohol?: Monthly or less 2. How many drinks containing alcohol do you have on a typical day when you are drinking?: 1 or 2 3. How often do you have six or more drinks on one occasion?: Never Total Score: 1 RADHA-7 AMB Questionnaire RADHA-7 Date RADHA - 7 assessed: 10/12/24 Feeling nervous, anxious, or on edge: 0 = Not at all Not being able to stop or control worryin = Not at all Worrying too much about different things: 0 = Not at all Trouble relaxin = Not at all Being so restless that it is hard to sit still: 0 = Not at all Becoming easily annoyed or irritable: 0 = Not at all Feeling afraid as if something awful might happen: 0 = Not at all Total RADHA-7 score (0-4 normal; 5-9 mild; 10-14 moderate; 15-21 severe): 0 Source: Developed by Drs. Dony Ruiz, Leonora Villagran, Curtis Nova and colleagues, with an educational landon from [employer]. RADHA-7 Assessment Billing RADHA-7 Assessment Tool: RADHA-7 Assessment 97126 Review of Systems Const All systems reviewed & are unremarkable except as noted in HPI and below Eyes Reports no additional complaints ENT Reports no additional complaints Card Reports no additional complaints Resp Reports no additional complaints GI Reports no additional complaints Reports no additional complaints Physical exam (Primary Care) Vital Signs: Last Vital Signs Temp 98.3 F 10/12/24 12:07 Pulse 64 10/12/24 12:07 Resp 18 10/12/24 12:07 BP 122/78 10/12/24 12:07 Pulse Ox 94 10/12/24 12:07 Oxygen Delivery Method Room Air 10/12/24 12:07 BMI result Body Mass Index 21.4 Tobacco/Smoking Status: Tobacco use Status Tobacco use date assessed 10/12/24 10/12/24 12:22 Patient Tobacco Use Status Never used Tobacco 10/12/24 12:07 e-Cigarette/Vaping Use Never Used 10/12/24 12:07 PHQ-9: PHQ-9 Score PHQ-9: Total score 0 10/12/24 12:24 Depression Screening Interpretation: Negative Thrive Assessment: Date of Thrive Assessment Date Thrive assessed 10/12/24 10/12/24 12:07 Const General: no acute distress HENMT Head: Yes normal to inspection Ears: TM's normal bilaterally Mouth: Normal oral and palatal mucosa present Throat: Yes posterior oropharynx normal Eyes General: appearance normal, both eyes and all related structures Neck Neck: Yes no lymphadenopathy and Yes supple Resp Effort & Inspection: normal respiratory effort Auscultation: clear to auscultation bilaterally Cardio Rhythm: regular rhythm Heart sounds: S1 normal heart sound present and S2 normal heart sound present GI Inspection: Yes normal to inspection Palpation (GI): Soft to palpation Percussion: Yes normal to percussion Auscultation: normal bowel sounds Speculum Exam - Vagina: normal appearance of the vagina Speculum Exam - Cervix: normal appearance of the cervix Bimanual exam- vagina & uterus: normal bimanual exam Coding Level of Care Code Est Pt Prev Care 40-64y(39005) Diagnoses Elevated LFTs R79.89 Annual physical exam Z00.00 HTN (hypertension) I10 ETOH abuse F10.10 Additional Codes RADHA-7 Assessment Billing - RADHA-7 Assessment Tool: RADHA-7 Assessment 98102 ([id number]) PHQ-9 - 70566 - PHQ-9 Billing: Yes ([id number]) Assessment & Plan Assessment & Plan (1) Elevated LFTs: Code(s): R79.89 - Other specified abnormal findings of blood chemistry Category: Medical Plan: Obtain bladder ultrasound to evaluate. Cutting down on alcohol intake NSAIDs and simple carbohydrates discussed with the patient (2) Annual physical exam: Code(s): Z00.00 - Encounter for general adult medical examination without abnormal findings Category: Medical Plan: Well-balanced diet regular physical activity discussed with the patient. She will schedule an appointment for mammogram Pap smear was done today. She is overdue for colonoscopy and will be referred to GI. (3) HTN (hypertension): Code(s): I10 - Essential (primary) hypertension Category: Medical Plan: Continue valsartan follow-up in 2 months (4) ETOH abuse: Comment: 4 beers daily. cutting down Code(s): F10.10 - Alcohol abuse, uncomplicated Category: Social Hx Plan: Cutting down on alcohol discussed with the pt Orders: Orders US abdomen limited Today R79.89 - Other specified abnormal findings of blood chemistry Pap Smear Today Z00.00 - Encounter for general adult medical examination without abnormal findings Referrals Gastroenterology Referral Z98.890 - Other specified postprocedural states Medications: Refilled valsartan 40 mg PO DAILY 90 tabs 3RF Discontinued valsartan in addition to your 40mg daily - total daily dose is 60mg Discontinued Reason: Doctor's Order 20 mg (1/2 x 40 mg) PO DAILY 30 tabs 1RF
== END 2024-10-12 13:53 | disposition home or self-care (01) ==
LOC: HO.HMCC 11:53
PROVIDERS: PCP Internal Medicine; Visit Provider Internal Medicine
DX: R79.89 Other specified abnormal findings of blood chemistry (principal); Z00.00 Encounter for general adult medical examination without abnormal findings; I10 Essential (primary) hypertension; F10.10 Alcohol abuse, uncomplicated

== ENCOUNTER 2024-11-20 12:50 | Outpatient (REF) | payer OTHER, SELFPAY | END 2024-11-20 12:51 | disposition home or self-care (01) | LOC: HO.LNP 12:50 | PROVIDERS: PCP Internal Medicine; Visit Provider Obstetrics & Gynecology | DX: R87.611 Atypical squamous cells cannot exclude high grade squamous intraepithelial lesion on cytologic smear of cervix (ASC-H) (principal) | CPT/HCPCS: 57454; 88305; 88341; 88342 ==

== ENCOUNTER 2024-11-20 12:50 | Outpatient (AMB) | payer OTHER, SELFPAY ==
[2024-11-20 12:55] VITALS: BP 126/80; BMI 23.4
--- NOTE | 2024-11-20 12:55 | A.OFFVIS_ITS ---
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 Sexually active: Yes Sexual orientation: Straight/Heterosexual Gender identity: Female Cognitive needs: No Hearing needs: No Vision needs: Yes Female Reproductive History Menstrual Total pregnancies: 3 Full term: 2 Number of Living Children: 2 Ab spontaneous: 1 Review of Systems Const All systems reviewed & are unremarkable except as noted in HPI and below Reports as per HPI and Reports no additional complaints GI Reports no additional complaints Reports no additional complaints Physical Exam Vital Signs: Last Vital Signs BP 126/80 11/20/24 12:55 BMI result Body Mass Index 23.4 Office Procedures Colposcopy Colposcopy: Pre-Procedure Counseling: Before beginning the procedure, I conducted comprehensive counseling with the patient. We thoroughly discussed the procedure itself, including its details, alternatives, and all associated risks. This included but not limited to the following complications such as bleeding, infection, and injury to the vagina, bladder, and vessels, as well as the potential need for transfusion with all its associated risks. Subsequently, the patient sign the consent. Pap smear result: ASC-H/HPV positive, HPV 16/18 negative Procedure: During the procedure, the following steps were performed: A speculum was inserted, and acetic acid was applied. Colposcopy was conducted, allowing visualization of the transformation zone. Acetowhite lesions were identified at the 6+9+12+1+3 o'clock position. Cervical biopsies were obtained from the 6+9+12+1+3 o'clock position, followed by an endocervical curettage (ECC). Vaginoscopy of the upper vagina revealed no evidence of aceto-white lesions. Hemostasis was achieved using Monsel solution, and the patient tolerated the procedure well. Post-Procedure Instructions: The patient was advised to promptly contact the office or the after hours answering service or go to the emergency room if experiencing a temperature exceeding 100.4?F, abdominal pain, nausea/vomiting, or bleeding. Additionally, the patient was instructed to abstain from vaginal intercourse and bathtub use. The patient confirmed understanding of these instructions. Discharge Instructions: The patient was instructed to schedule a follow-up appointment in 2 weeks for further evaluation and management. Please note that this note was generated using a voice recognition program, and errors may have occurred during technical specialist cytogenetics. [id number] of cervix including upper vagina with biopsy and ECC Procedure code (CPT) selection complete Assessment & Plan Assessment & Plan (1) Pap smear of cervix with ASCUS, cannot exclude HGSIL: Comment: HPV positive, HPV 16/18 negative Code(s): R87.611 - Atypical squamous cells cannot exclude high grade squamous intraepithelial lesion on cytologic smear of cervix (ASC-H) Category: Medical Plan: Discussed with the patient the result of her abnormal pap, its significance, risk of progression, persistence, and regression. the false positive/negative rate of a Pap smear as a screening test in detecting cervical cancer and the i ndication for a diagnostic test -colposcopy, biopsy, endocervical curettage. The patient verbalized understanding and agreed with the plan, all questions answered. Colposcopy, biopsy /ECC done, see procedure note Orders: Orders AMB Colposcopy Today R87.611 - Atypical squamous cells cannot exclude high grade squamous intraepithelial lesion on cytologic smear of cervix (ASC-H) Coding Level of Care Code Procedure Only Diagnoses Pap smear of cervix with ASCUS, cannot exclude HGSIL R87.611 CPT Codes Colposcopy - CPT: 17383-[id number] of cervix including upper vagina with biopsy and ECC ([id number])
--- OUTSIDE RECORDS SUMMARY | 2024-11-20 15:12 | XMS_ITS | Patient Health Record ---
Author Organization [facility] Address [address] [place] [address] Care Team Providers Care Him Tech Name Role Phone Mariella Burrows Unavailable [phone] Reason For Referral No Information Problems Problem Type SNOMED Code ICD Code Onset Dates Problem Status W/U Status Risk Notes Problem Gynecological examination normal (254577701857062) Routine gynecological examination (V72.31) Active confirmed Major Problem Exercises teaching, guidance, and counseling (210765858) Exercise counseling (V65.41) Active confirmed Diag Problem Screening for malignant neoplasm of colon (987541345) Special screening for malignant neoplasms, colon (V76.51) Active confirmed Major Plan Of Treatment Pending Test Test Name Order Date Ultrasound : Breast, left 05/30/2015 Insurance Providers Payer Name Payer Address Payer Phone Subscriber Number Group Number Insured Name Patient Relationship to Insured Coverage Start Date Coverage End Date [facility] [address] [place] [address] [id number] JOAQUIN MUNGUIA Self - patient is the insured Medical (General) History Surgical History Surgery Date(Month/Year) VAGINAL SLING SURGERY - INCONTINENCE
== END 2024-11-20 13:53 | disposition home or self-care (01) ==
LOC: HO.HWS 12:50
PROVIDERS: PCP Internal Medicine; Visit Provider Obstetrics & Gynecology
DX: R87.611 Atypical squamous cells cannot exclude high grade squamous intraepithelial lesion on cytologic smear of cervix (ASC-H) (principal)
CPT/HCPCS: 57454

== ENCOUNTER 2024-11-28 08:59 | Outpatient (REF) | payer OTHER, SELFPAY ==
--- NOTE | ~2024-11-28 | US_ITS ---
EXAMINATION: US ABDOMEN LIMITED HISTORY: R79.89 - Other specified abnormal findings of blood chemistry TECHNIQUE: Real-time grayscale ultrasound imaging of the right upper quadrant was performed and images were reviewed. COMPARISON: There are no prior studies available for comparison. FINDINGS: Liver: The right lobe of the liver measures 15.3 cm in size. The left lobe of the liver measures 10.6 cm in size. The liver demonstrates increased echotexture, consistent with steatosis. No focal mass or intrahepatic biliary ductal dilatation is identified. There is normal hepatopedal flow in the portal vein. Gallbladder and biliary tree: The gallbladder is unremarkable, without evidence of calculi, wall thickening, or pericholecystic fluid. There is no sonographic Rubalcava sign. The common bile duct is normal in caliber measuring 4 mm. Right Kidney: The right kidney measures 10.8 cm in length. There is a 4 mm nonobstructing calculus at the lower pole. There is no mass or hydronephrosis. Pancreas: The pancreatic head, neck, and body are unremarkable. The pancreatic tail is obscured by bowel gas. Abdominal aorta and inferior vena cava: The visualized portions of the abdominal aorta and inferior vena cava are normal in caliber. There is no free fluid in the right upper quadrant. US/US abdomen limited IMPRESSION: 1. Hepatic steatosis. 2. 4 mm nonobstructing right renal calculus. Electronically signed by: Dony Rodriguez MD 11/28/2024 09:29 AM EDT
--- OUTSIDE RECORDS SUMMARY | 2024-11-28 10:31 | XMS_ITS | Patient Health Record ---
Author Organization [facility] Address [address] [place] [address] Care Team Providers Care Technology Education Instructor Name Role Phone Mariella Burorws Unavailable [phone] Reason For Referral No Information Problems Problem Type SNOMED Code ICD Code Onset Dates Problem Status W/U Status Risk Notes Problem Gynecological examination normal (290448280499377) Routine gynecological examination (V72.31) Active confirmed Major Problem Exercises teaching, guidance, and counseling (781183288) Exercise counseling (V65.41) Active confirmed Diag Problem Screening for malignant neoplasm of colon (415883023) Special screening for malignant neoplasms, colon (V76.51) Active confirmed Major Plan Of Treatment Pending Test Test Name Order Date Ultrasound : Breast, left 05/30/2015 Insurance Providers Payer Name Payer Address Payer Phone Subscriber Number Group Number Insured Name Patient Relationship to Insured Coverage Start Date Coverage End Date [facility] [address] [place] [address] [id number] JOAQUIN MUNGUIA Self - patient is the insured Medical (General) History Surgical History Surgery Date(Month/Year) VAGINAL SLING SURGERY - INCONTINENCE
== END 2024-11-28 09:00 | disposition home or self-care (01) ==
LOC: HO.HMGCX 08:59
PROVIDERS: PCP Internal Medicine; Visit Provider Internal Medicine
DX: R79.89 Other specified abnormal findings of blood chemistry (principal)
CPT/HCPCS: 76705

== ENCOUNTER → 2024-11-28 09:00 | Outpatient (BNV) | payer OTHER, SELFPAY | PROVIDERS: PCP Internal Medicine; Visit Provider Radiology Diagnostic Radiology | DX: K76.0 Fatty (change of) liver, not elsewhere classified (principal) | CPT/HCPCS: 76705 ==

== ENCOUNTER 2024-12-11 12:43 | Outpatient (AMB) | payer OTHER, SELFPAY ==
--- NOTE | 2024-12-11 12:48 | MHC.OFFVIS ---
Vital Signs 12/11/24 12:49 BP 138/82 Intake Visit Reasons: pre op Motion Picture Actor: Motion Picture Actor Present Allergies No Known Allergies Allergy (Verified 12/11/24 12:51) Is last menstrual period known: Yes Last menstrual period: 01/10/20 Post menopausal: No Patient : No Do you need a note to return to daycare/school/sports/work: Yes (for surgery on tuesday) HPI Comments Details: Presenting post colpo for follow-up. The patient is doing well with no complaints. The pathology showed the following: A. Endocervix, curettage: - Superficial strips of endocervical epithelium within normal limits. - Atrophic squamous epithelium. B. Cervix, 1 o'clock, biopsy: - Low-grade squamous intraepithelial lesion (CASI 1). - Background inflamed cervical transformation zone mucosa. C. Cervix, 3 o'clock, biopsy: Squamous atrophy; no endocervical epithelium identified. D. Cervix, 6 o'clock, biopsy: Inflamed cervical transformation zone mucosa with reactive changes. E. Cervix, 9 o'clock, biopsy: Inflamed cervical transformation zone mucosa with squamous atrophy and reactive changes. F. Cervix, 12 o'clock, biopsy: - High-grade squamous intraepithelial lesion (CASI 2-3). - Background inflamed cervical transformation zone mucosa. COMMENT: The findings are concordant with the patient's recent Pap/cytology specimen ([id number]; ASCUS, cannot rule out high grade lesion with positive HR HPV) - slide reviewed ON LICENSE OF [facility] Medical History ETOH abuse Annual physical exam Elevated LFTs HTN (hypertension) Anemia Surgical History Hx of colonoscopy No pertinent past surgical history Family History Father No problems noted. 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 [employer] Sexual orientation: Straight/Heterosexual Gender identity: Female Cognitive needs: No Hearing needs: No Vision needs: Yes Female Reproductive History Menstrual Date of last menstrual period: 01/10/20 Total pregnancies: 2 Full term: 2 Review of Systems Card Reports as per HPI and Reports no additional complaints Resp Reports as per HPI and Reports no additional complaints GI Reports as per HPI and Reports no additional complaints Reports as per HPI Physical Exam Vital Signs: Last Vital Signs BP 138/82 12/11/24 12:49 Const General: cooperative, healthy appearing and comfortable Resp Effort & Inspection: normal respiratory effort Auscultation: clear to auscultation bilaterally Percussion: percussion normal Cardio Palpation: normal PMI Rate: regular rate Rhythm: regular rhythm Heart sounds: no murmurs and no rubs Peripheral pulses: Peripheral pulses 2+ throughout GI Inspection: Yes normal to inspection Palpation (GI): Soft to palpation, nontender, no guarding, not rigid and No hepatosplenomegaly present Percussion: Yes normal to percussion Auscultation: normal bowel sounds Rectal Exam - Female: deferred Assessment & Plan Assessment & Plan (1) 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 Discussed with the patient the sensitivity specificity, positive and negative predictive value in detecting cervical cancer in addition discussed the regression, persistence and progression rates. In addition, discussed with the patient the risk of progression to cancer and impact of excision procedure on her future . Recommended excisional procedures, LEEP cone with post cone ECC. Discussed with the patient the procedure, its benefits and risks including bleeding, infection, possible need for blood transfusion with all its risk ( HIV, syphilis, Hepatitis, anaphylaxis shock, others..), injury to bladder, rectum, possible need for re-excision or hysterectomy for positive margins, potential need for hysterectomy. Also discussed the patient options of anesthesia either paracervical block versus IV sedation/MAC, prefers to proceed with IV sedation/MAC . All questions answered, the patient verbalized understanding and signed the consent. Will proceed with LEEP cone was post cone ECC. Discussed with the patient the procedure, its benefits and risks including bleeding, infection, possible need for blood transfusion with all its risk ( HIV, syphilis, Hepatitis, anaphylaxis shock, others..), injury to bladder, rectum, possible re-excision for positive margins, potential need for hysterectomy, possible future negative impact on fertility including ( cervical stenosis, incompetence , increase risk for c section 2ndary to cervical scarring and failure of dilatation), possible positive margin necessitating re-excision. Also discussed the patient options of anesthesia either paracervical block versus IV sedation/MAC, prefers to proceed with IV sedation/MAC. All questions answered, the patient verbalized understanding and signed the consent. Coding Level of Care Code Est Pt Level 3 (24901) Diagnoses CASI III (cervical intraepithelial neoplasia grade III) with severe dysplasia D06.9
[2024-12-11 12:49] VITALS: BP 138/82
--- OUTSIDE RECORDS SUMMARY | 2024-12-11 13:50 | XMS_ITS | Patient Health Record ---
Author Organization [facility] Address [address] [place] [address] Care Team Providers Care Drier Belt Conveyor Name Role Phone Mariella Burrows Unavailable [phone] Reason For Referral No Information Problems Problem Type SNOMED Code ICD Code Onset Dates Problem Status W/U Status Risk Notes Problem Gynecological examination normal (160265780810675) Routine gynecological examination (V72.31) Active confirmed Major Problem Exercises teaching, guidance, and counseling (192952007) Exercise counseling (V65.41) Active confirmed Diag Problem Screening for malignant neoplasm of colon (209600994) Special screening for malignant neoplasms, colon (V76.51) Active confirmed Major Plan Of Treatment Pending Test Test Name Order Date Ultrasound : Breast, left 05/30/2015 Insurance Providers Payer Name Payer Address Payer Phone Subscriber Number Group Number Insured Name Patient Relationship to Insured Coverage Start Date Coverage End Date [facility] [address] [place] [address] [id number] JOAQUIN MUNGUIA Self - patient is the insured Medical (General) History Surgical History Surgery Date(Month/Year) VAGINAL SLING SURGERY - INCONTINENCE
== END 2024-12-11 13:11 | disposition home or self-care (01) ==
LOC: HO.HWS 12:44
PROVIDERS: Visit Provider Obstetrics & Gynecology
DX: D06.9 Carcinoma in situ of cervix, unspecified (principal)
CPT/HCPCS: 99213

== ENCOUNTER → 2024-12-11 12:43 | Outpatient (BNVA) | payer OTHER, SELFPAY | PROVIDERS: Visit Provider Obstetrics & Gynecology | DX: Z01.818 Encounter for other preprocedural examination (principal); D06.9 Carcinoma in situ of cervix, unspecified | CPT/HCPCS: 99212 ==

== ENCOUNTER 2024-12-12 13:12 | Outpatient (REF) | payer OTHER, SELFPAY ==
--- OUTSIDE RECORDS SUMMARY | 2024-12-12 14:28 | XMS_ITS | Patient Health Record ---
Author Organization [facility] Address [address] [place] [address] Care Team Providers Care Paint And Table Edger Name Role Phone Mariella Burrows Unavailable [phone] Reason For Referral No Information Problems Problem Type SNOMED Code ICD Code Onset Dates Problem Status W/U Status Risk Notes Problem Gynecological examination normal (123238991372239) Routine gynecological examination (V72.31) Active confirmed Major Problem Exercises teaching, guidance, and counseling (341089032) Exercise counseling (V65.41) Active confirmed Diag Problem Screening for malignant neoplasm of colon (661878730) Special screening for malignant neoplasms, colon (V76.51) Active confirmed Major Plan Of Treatment Pending Test Test Name Order Date Ultrasound : Breast, left 05/30/2015 Insurance Providers Payer Name Payer Address Payer Phone Subscriber Number Group Number Insured Name Patient Relationship to Insured Coverage Start Date Coverage End Date [facility] [address] [place] [address] [id number] JOAQUIN MUNGUIA Self - patient is the insured Medical (General) History Surgical History Surgery Date(Month/Year) VAGINAL SLING SURGERY - INCONTINENCE
== END 2024-12-12 13:13 | disposition home or self-care (01) ==
LOC: HO.MAMMO 13:12
PROVIDERS: PCP Internal Medicine; Visit Provider Internal Medicine
DX: Z12.31 Encounter for screening mammogram for malignant neoplasm of breast (principal)
CPT/HCPCS: 77063; 77067

== ENCOUNTER → 2024-12-12 13:15 | Outpatient (BNV) | payer OTHER, SELFPAY | PROVIDERS: PCP Internal Medicine; Visit Provider Internal Medicine | DX: Z12.31 Encounter for screening mammogram for malignant neoplasm of breast (principal) | CPT/HCPCS: 77063; 77067 ==

== ENCOUNTER 2024-12-31 12:53 | Outpatient (AMB) | payer OTHER, SELFPAY ==
[2024-12-31 13:07] VITALS: BP 120/74; PULSE 90; RESP 17; TEMP 36.9; O2SAT 98; BMI 24.0
--- NOTE | 2024-12-31 13:07 | MHC.PC.OV ---
Vital Signs 12/31/24 13:07 Height 5 ft Weight 123 lb BMI 24.0 BP 120/74 Blood Pressure Location Rt brachial Position Sitting Respiration 17 Pulse 90 Pulse Source Pulse Oximeter Temp 98.4 F Temp Source Oral Pulse Oximetry (%) 98 Oxygen Delivery Method Room Air Intake Visit Reasons: 2m follow up Intake Note: Pt is here today for 2 months follow up visit. Allergies No Known Allergies Allergy (Verified 12/31/24 13:09) Medication List - Last Reconciled 12/31/24 by Kendy Knott MD folic acid 0.4 mg PO DAILY valsartan 40 mg PO DAILY Tobacco use date assessed: 12/31/24 Dental Screening Dental Screen Date: 10/12/24 HPI 2m follow up HPI Details Pt presents for PE. [facility] Medical History (Updated 12/31/24 @ 15:01 by Kendy Knott MD) CASI III (cervical intraepithelial neoplasia grade III) with severe dysplasia ETOH abuse Annual physical exam Elevated LFTs HTN (hypertension) Anemia Surgical History Hx of colonoscopy No pertinent past surgical history Family History Father No problems noted. Mother COPD (chronic obstructive pulmonary disease) Mental health disorder Son Mental health disorder Social History Household Members: None Housing: House Alcohol intake: current Alcohol intake frequency: holidays/special occasions only Patient Tobacco Use Status: Never used Tobacco e-Cigarette/Vaping Use: Never Used service: No Current occupational status: employed Current occupation: [employer] Sexual orientation: Straight/Heterosexual Gender identity: Female Cognitive needs: No Hearing needs: No Vision needs: Yes Questionnaire PHQ-9 Over the last 2 weeks, how often have you been bothered by any of the following problems? 1. Little interest or pleasure in doing things: not at all 2. Feeling down, depressed, or hopeless: not at all 3. Trouble falling or staying asleep, or sleeping too much: not at all 4. Feeling tired or having little energy: not at all 5. Poor appetite or overeating: not at all 6. Feeling bad about yourself - or that you are a failure or have let yourself or your family down: not at all 7. Trouble concentrating on things, such as reading the newspaper or watching television: not at all 8. Moving or speaking so slowly that other people could have noticed. Or the opposite - being so fidgety or restless that you have been moving around a lot more than usual: not at all 9. Thoughts that you would be better off or of hurting yourself in some way: not at all Total score: 0 Depression Screening Interpretation: Negative Depression Screening Done: Yes Source: Developed by Drs. Dony Ruiz, Leonora Villagran, Curtis Nova and colleagues, with an educational landon from [employer]. Thrive Questionnaire Date Thrive assessed: 12/28/24 I am a: Patient What is your living situation today?: I have a steady place to live Within the past 12 months, did the food you bought not last and you didn't have the money to get more?: Never true Within the past 12 months, did you worry whether your food would run out before you got money to buy more?: Never true Do you have trouble paying for medicines?: No Do you have trouble getting transportation to medical appointments?: No Do you have trouble paying your heating and electricity bill?: No Do you have trouble taking care of your child, family member or friend?: No Do you have trouble with day-to-day activities such as bathing, preparing meals, shopping, managing finances, etc.?: No Are you currently unemployed and looking for a job?: No Are you interested in more education?: No Please select the resources that you would like help with: None Currently or been in a relationship where the following occur: No concerns reported THRIVE Score: 0 AUDIT C Alcohol Use Questionnaire (AUDIT-C) 1. How often do you have a drink containing alcohol?: 4 or more times a week 2. How many drinks containing alcohol do you have on a typical day when you are drinking?: 3 or 4 3. How often do you have six or more drinks on one occasion?: Less than monthly Total Score: 6 RADHA-7 AMB Questionnaire RADHA-7 Date RADHA - 7 assessed: 10/12/24 Feeling nervous, anxious, or on edge: 0 = Not at all Not being able to stop or control worryin = Not at all Worrying too much about different things: 0 = Not at all Trouble relaxin = Several days Being so restless that it is hard to sit still: 0 = Not at all Becoming easily annoyed or irritable: 1 = Several days Feeling afraid as if something awful might happen: 0 = Not at all Total RADHA-7 score (0-4 normal; 5-9 mild; 10-14 moderate; 15-21 severe): 2 Source: Developed by Drs. Dony Ruiz, Leonora Villagran, Curtis Nova and colleagues, with an educational landon from [employer]. Review of Systems Const All systems reviewed & are unremarkable except as noted in HPI and below Eyes Reports no additional complaints ENT Reports no additional complaints Resp Reports no additional complaints GI Reports no additional complaints Reports no additional complaints Physical exam (Primary Care) Vital Signs: Last Vital Signs Temp 98.4 F 12/31/24 13:07 Pulse 90 12/31/24 13:07 Resp 17 12/31/24 13:07 BP 120/74 12/31/24 13:07 Pulse Ox 98 12/31/24 13:07 Oxygen Delivery Method Room Air 12/31/24 13:07 BMI result Body Mass Index 24.0 Tobacco/Smoking Status: Tobacco use Status Tobacco use date assessed 12/31/24 12/31/24 13:12 Patient Tobacco Use Status Never used Tobacco 12/31/24 13:12 e-Cigarette/Vaping Use Never Used 12/31/24 13:12 PHQ-9: PHQ-9 Score PHQ-9: Total score 0 12/31/24 13:12 Depression Screening Interpretation: Negative Thrive Assessment: Date of Thrive Assessment Date Thrive assessed 12/28/24 12/31/24 13:12 Currently or been in a relationship where the following occur: No concerns reported Const General: no acute distress HENMT Head: Yes normal to inspection Ears: hearing grossly normal bilaterally Face and sinus: Yes normal facial exam Mouth: Normal oral and palatal mucosa present Eyes General: appearance normal, both eyes and all related structures Neck Neck: Yes supple Resp Effort & Inspection: normal respiratory effort Auscultation: clear to auscultation bilaterally Cardio Rhythm: regular rhythm Heart sounds: S1 normal heart sound present and S2 normal heart sound present GI Inspection: Yes normal to inspection Palpation (GI): Soft to palpation Percussion: Yes normal to percussion Auscultation: normal bowel sounds Coding Level of Care Code Est Pt Prev Care 40-64y(37437) Diagnoses ETOH abuse F10.10 HTN (hypertension) I10 Vitamin D deficiency E55.9 Hx of colonoscopy Z98.890 CASI III (cervical intraepithelial neoplasia grade III) with severe dysplasia D06.9 Annual physical exam Z00.00 Assessment & Plan Assessment & Plan (1) ETOH abuse: Comment: 4 beers daily. cutting down Code(s): F10.10 - Alcohol abuse, uncomplicated Category: Social Hx Plan: Cutting down on alcohol discussed with the patient (2) HTN (hypertension): Code(s): I10 - Essential (primary) hypertension Category: Medical Plan: Continue valsartan (3) Vitamin D deficiency: Code(s): E55.9 - Vitamin D deficiency, unspecified Category: Medical Plan: Continue vitamin-D supplement patient will return for fasting blood (4) Hx of colonoscopy: Comment: 2019, Dr. Mayes polyps, repeat 5 yrs Code(s): Z98.890 - Other specified postprocedural states Category: Surgical Plan: Follow-up with GI at [facility] for repeat colonoscopy (5) CASI III (cervical intraepithelial neoplasia grade III) with severe dysplasia: Comment: on pap 11/2024, will have LEEP 01/02/2025 by Code(s): D06.9 - Carcinoma in situ of cervix, unspecified Category: Medical Plan: Follow-up with gynecology (6) Annual physical exam: Code(s): Z00.00 - Encounter for general adult medical examination without abnormal findings Category: Medical Plan: Well-balanced and regular physical activity with the patient. She is up-to-date with the mammogram
== END 2024-12-31 15:02 | disposition home or self-care (01) ==
LOC: HO.HMCC 12:54
PROVIDERS: PCP Internal Medicine; Visit Provider Internal Medicine
DX: F10.10 Alcohol abuse, uncomplicated (principal); I10 Essential (primary) hypertension; E55.9 Vitamin D deficiency, unspecified; Z98.890 Other specified postprocedural states; D06.9 Carcinoma in situ of cervix, unspecified; Z00.00 Encounter for general adult medical examination without abnormal findings

== ENCOUNTER → 2024-12-31 12:53 | Outpatient (BNVA) | payer OTHER, SELFPAY | PROVIDERS: PCP Internal Medicine; Visit Provider Internal Medicine | DX: Z00.00 Encounter for general adult medical examination without abnormal findings (principal); F10.10 Alcohol abuse, uncomplicated; I10 Essential (primary) hypertension; E55.9 Vitamin D deficiency, unspecified; D06.9 Carcinoma in situ of cervix, unspecified; Z98.890 Other specified postprocedural states | CPT/HCPCS: 99396 ==

== ENCOUNTER 2025-01-02 12:23 | Day surgery (SDC) | payer OTHER, SELFPAY ==
--- NOTE | 2024-12-31 10:08 | P.CONAN_ITS ---
Documented by User: Yanelis Graves NP 12/31/24 10:10 HPI - Anesthesia Eval Consult details Narrative: 64yo F for LEEP,poss loop electric excision,poss loop electrical,cone and post endocervical curettage Daily ETOH (4 beers) per last PCP visit PMFSH Active Problems Active Problems: All Active Problems CASI III (cervical intraepithelial neoplasia grade III) with severe dysplasia (Acute) Pap smear of cervix with ASCUS, cannot exclude HGSIL (Acute) HPV in female (Acute) Colon polyps (Acute) HTN (hypertension) (Acute) Hx of colonoscopy (Acute) ETOH abuse (Acute) Elevated LFTs (Acute) Macrocytic anemia (Acute) Vitamin D deficiency (Acute) Annual physical exam (Acute) Sprain of right knee (Acute) Contact dermatitis (Acute) Psoriasis (a type of skin inflammation) (Acute) Past Medical History Medical History CASI III (cervical intraepithelial neoplasia grade III) with severe dysplasia ETOH abuse Annual physical exam Elevated LFTs HTN (hypertension) Anemia Family History Family History Father No problems noted. 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 Sexual orientation: Straight/Heterosexual Gender identity: Female Cognitive needs: No Hearing needs: No Vision needs: Yes Meds Allergies Allergy/AdvReac Type Severity Reaction Status Date / Time No Known Allergies Allergy Verified 12/31/24 13:09 Exam Pertinent Lab Results Pertinent Lab Results: Laboratory Tests 09/10/24 13:09 WBC 4.5 L Hgb 13.7 Hct 38.6 Plt Count 304 Sodium 140 Potassium 4.1 Chloride 102 Carbon Dioxide 27 BUN 14 Creatinine 0.59 Assessment and Plan Assessment Anesthesia Assessment: Chart Reviewed Documented by User: Elizabeth James MD 01/02/25 12:38 PMFSH Past Medical History Medical History CASI III (cervical intraepithelial neoplasia grade III) with severe dysplasia ETOH abuse Annual physical exam Elevated LFTs HTN (hypertension) Anemia Family History Family History Father No problems noted. Mother COPD (chronic obstructive pulmonary disease) Mental health disorder Son Mental health disorder Family history of problems with anesthesia: No Surgical History Surgical History Hx of colonoscopy No pertinent past surgical history History of Problems with Anesthesia: No Social History Social History Household Members: None Housing: House Alcohol intake: current Alcohol intake frequency: holidays/special occasions only Patient Tobacco Use Status: Never used Tobacco e-Cigarette/Vaping Use: Never Used Advance Directives: No Advance Directives Information Provided: Yes service: No Current occupational status: employed 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 [employer] Sexual orientation: Straight/Heterosexual Gender identity: Female Cognitive needs: No Hearing needs: No Vision needs: Yes Meds Allergies Allergy/AdvReac Type Severity Reaction Status Date / Time No Known Allergies Allergy Verified 12/31/24 13:09 Exam Airway Mallampati Class: II TM Dist: >3cm Neck ROM: Full Heart: rrr Lungs: cta Assessment and Plan Assessment Anesthesia Assessment: Anesthesia Plan Discussed Final Anesthetic Review Family History of Problems with Anesthesia: No History of Problems with Anesthesia: No NPO: Yes ASA Class: III Final Preanesthetic Review: No Changes in Pt Med Stat, Meds/Allgs Chart Reviewed, Consent Obtained/Reviewed and Anes Risks/Benef Reviewed Patient Risk: Intermediate Procedure Risk: Low Anesthetic Plan Anesthetic Plan: GA and Agree w/ Assess. and Plan Disposition: Standard PACU
[2024-12-31 10:42] VITALS: BMI 21.4
[2025-01-02 12:38] VITALS: BP 169/90; PULSE 84; RESP 18; TEMP 37.1; O2SAT 97; BMI 21.6
[2025-01-02] MEDS: Lactated Ringers 1,000 ML 100 ML IVCONT (12:52)
--- NOTE | 2025-01-02 13:16 | MHC.SHP ---
Pre-Procedural Eval Section A - 24 Hr Update-Section A only Date of Service: 01/02/25 The patient is an INPATIENT: No Changes since office visit: No Cold of Flu in the past 2 weeks, No New Medical Problems, No Changes in Medication and No Patient answered all questions The patient has been examined within 24 hours of the surgical procedure. The History & Physical has been completed within 30 days and I have reviewed it.: Yes Section B - Complete if H&P > 30 days Chief Complaint: Carcinoma in situ of cervix, unspecified Allergies: Allergies Allergy/AdvReac Type Severity Reaction Status Date / Time No Known Allergies Allergy Verified 12/31/24 13:09 Plan Diagnosis/Plan: Unchanged I have reviewed the history and physical and performed a pertinent physical examination on my patient. No changes have occurred unless specified. Time Spent With Patient Time: Total time managing care of this patient today ____ minutes.
--- NOTE | 2025-01-02 14:52 | PM.OP ---
Brief Operative Note Date of Service: 01/02/25 Pre-op diagnosis: CASI 2-3 Post-op diagnosis: same Procedure: LEEP CONE with post LEEP cone ECC Surgeon: Vincenzo Prabhakar MD Anesthesia: GLMA and other (Paracervical block) Was an Refrigeration Brazer/Solderer used for this Procedure?: No Estimated blood loss (mL): 0 Pathology: other (Anterior and posterior cervical lips, endocervix, Post LEEP ECC) Condition: stable Disposition: other (Home)
--- NOTE | 2025-01-02 14:53 | W.PM.OPN ---
Operative Note Operative Note Date of Service: 01/02/25 Narrative: Pre op diagnosis: CASI 2-3 Operation: Colposcopy, loop electric excision cone procedure with post cone ECC Postop diagnosis: the same Quantitative blood loss: 50 cc Surgeon: Vincenzo Prabhakar MD, FACOG Planting Material Unloader: None Pathology: Anterior and posterior cervical lips, endo cervix, post LEEP endo cervical curettage Complications: none Anesthesia: GLMA and Para cervical block Procedure: The patient was put in a dorsal lithotomy position, scrubbed and draped in the usual sterile fashion. A speculum was inserted inside the patient's vagina. The cervix is assessed using the colposcope with acetic acid , the lesions were seen, and at least 1 cm of the squamocolumnar junction was observed. 20 x 5 mm size loop was selected based upon the diameter of the lesion. Lugol solution was used to outline the lesions and area of the transformation zone order to be removed 10 cc of xylocaine with epinephrine were injected submucosally into the surface of the cervix (ectocervix) at the 3, 6, 9, and 12 o'clock positions. The electrosurgical generator is set at 40 [place] on blend 1. The loop is carefully passed simultaneously around and under the transformation zone of the anterior and posterior cervical lip separately, in order to ensure excising it making sure the lesion is at least 5 mm far from the specimen margins . The loop was allowed to glide through the cervix from one side to the other, allowing the cutting current to divide the tissue. Next additional tissue was excised from the endocervix An endo cervical curettage is performed following completion of excision, and hemostasis is obtained with a Ball electrode or regular tip cautery. At the end, Monsel's solution was applied to the cone bed. The patient tolerated the procedure well and, all instruments were taken out of the patient vaginal cavity, and the patient was transferred to the PACU in stable condition.
[2025-01-02 15:00] VITALS: BP 133/74; PULSE 80; RESP 12; TEMP 36.1; O2SAT 97
[2025-01-02 15:15] VITALS: BP 137/74; PULSE 84; RESP 14; O2SAT 97
[2025-01-02 15:30] VITALS: BP 134/72; PULSE 80; RESP 13; TEMP 36.1; O2SAT 97
== END 2025-01-02 16:02 | disposition home or self-care (01) ==
PROVIDERS: PCP Internal Medicine; Visit Provider Obstetrics & Gynecology
PROC: 0UBC7ZZ Excision of Cervix, Via Natural or Artificial Opening (ICD-10-PCS; CPT 57522; principal; 2025-01-02 14:30)
DX: R87.613 High grade squamous intraepithelial lesion on cytologic smear of cervix (HGSIL) (principal); I10 Essential (primary) hypertension; D64.9 Anemia, unspecified; R79.89 Other specified abnormal findings of blood chemistry; F10.10 Alcohol abuse, uncomplicated
CPT/HCPCS: 57461; 88305; 88307; 88341; 88342; J1100; J1885; J2003; J2004; J2250; J2405; J2704; J3010

== ENCOUNTER → 2025-01-02 12:23 | Outpatient (BNV) | payer OTHER, SELFPAY | PROVIDERS: PCP Internal Medicine; Visit Provider Obstetrics & Gynecology | DX: D06.9 Carcinoma in situ of cervix, unspecified (principal) | CPT/HCPCS: 57461 ==

== ENCOUNTER 2025-01-21 09:04 | Outpatient (AMB) | payer OTHER, SELFPAY ==
--- NOTE | 2025-01-21 09:05 | MHC.OFFVIS ---
Intake Visit Reasons: post op Allergies No Known Allergies Allergy (Verified 12/31/24 13:09) HPI Comments Details: The patient is presenting for follow-up post LEEP cone with post cone ECC. The patient has no complaints. Pathology showed the following: A. Cervix, anterior lip, LEEP: - High grade squamous intraepithelial lesion (CASI 2-3), focally involving glands; margins negative. - Background inflamed cervical transformation zone mucosa; changes consistent with prior procedure. B. Cervix, posterior lip, LEEP: Inflamed cervical transformation zone mucosa; changes consistent with prior procedure; no residual squamous intraepithelial lesion identified. C. Endocervix, excision: Endocervical tissue within normal limits; no atypia identified. D. Endocervix, post cone curettage: Scant superficial fragments of endocervical and atrophic squamous epithelium; no atypia identified. See comment. Comment: Multiple additional levels are examined on A and B. [facility] Medical History (Updated 01/21/25 @ 09:08 by Vincenzo Prabhakar MD) CASI III (cervical intraepithelial neoplasia grade III) with severe dysplasia ETOH abuse Annual physical exam Elevated LFTs HTN (hypertension) Anemia Surgical History Hx of colonoscopy No pertinent past surgical history Family History Father No problems noted. 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 [employer] Sexual orientation: Straight/Heterosexual Gender identity: Female Cognitive needs: No Hearing needs: No Vision needs: Yes Review of Systems Const All systems reviewed & are unremarkable except as noted in HPI and below Reports as per HPI and Reports no additional complaints GI Reports no additional complaints Reports no additional complaints Assessment & Plan Assessment & Plan (1) CASI III (cervical intraepithelial neoplasia grade III) with severe dysplasia: Comment: Status post LEEP 1 with negative margins Code(s): D06.9 - Carcinoma in situ of cervix, unspecified Category: Medical Plan: Discussed with the patient the procedure and the pathology of the LEEP cone with post cone ECC. Instructions given to the patient to schedule an HPV based screening in 6 months, if normal then co testing Q year x 3 , if wnl cotest q3 x 25 years check the results and treat accordingly. Instructions given the patient to schedule a six-month Co testing appointment. All questions answered patient verbalized understanding. Coding Level of Care Code Est Pt Level 3 (01558) Diagnoses CASI III (cervical intraepithelial neoplasia grade III) with severe dysplasia D06.9
--- OUTSIDE RECORDS SUMMARY | 2025-01-21 09:45 | XMS_ITS | Patient Health Record ---
Author Organization [facility] Address [address] [place] [address] Care Team Providers Care Hairspring Cutter Name Role Phone Mariella Burrows Unavailable [phone] Reason For Referral No Information Problems Problem Type SNOMED Code ICD Code Onset Dates Problem Status W/U Status Risk Notes Problem Gynecological examination normal ([id number]) Routine gynecological examination (V72.31) Active confirmed Major Problem Exercises teaching, guidance, and counseling (832348953) Exercise counseling (V65.41) Active confirmed Diag Problem Screening for malignant neoplasm of colon (249692206) Special screening for malignant neoplasms, colon (V76.51) Active confirmed Major Plan Of Treatment Pending Test Test Name Order Date Ultrasound : Breast, left 05/30/2015 Insurance Providers Payer Name Payer Address Payer Phone Subscriber Number Group Number Insured Name Patient Relationship to Insured Coverage Start Date Coverage End Date [facility] [address] [place] [address] [id number] JOAQUIN MUNGUIA Self - patient is the insured Medical (General) History Surgical History Surgery Date(Month/Year) VAGINAL SLING SURGERY - INCONTINENCE
== END 2025-01-21 09:13 | disposition home or self-care (01) ==
LOC: HO.HWS 09:04
PROVIDERS: Visit Provider Obstetrics & Gynecology
DX: D06.9 Carcinoma in situ of cervix, unspecified (principal)
CPT/HCPCS: 99213

== ENCOUNTER → 2025-01-21 09:04 | Outpatient (BNVA) | payer OTHER, SELFPAY | PROVIDERS: Visit Provider Obstetrics & Gynecology | DX: D06.9 Carcinoma in situ of cervix, unspecified (principal); Z98.890 Other specified postprocedural states | CPT/HCPCS: 99212 ==